=== PATIENT | female | born 1965 | race Two or more races ===

== ENCOUNTER 2018-02-19 16:53 | Inpatient (IN) | payer MEDICAID ==
[2018-02-19] MEDS ORDERED: Ampicillin/Sulbactam Na 1.5 GM in Sodium Chloride 0.9% 50 ML IV SCH (17:00)
[2018-02-19] MEDS ORDERED: Vancomycin 1,000 MG SDV ONE (17:49)
[2018-02-19] MEDS: Insulin Aspart 100 Units/ML 3 ML Pen SUBCUT SCH (18:17)
[2018-02-19] MEDS ORDERED: Ampicillin/Sulbactam Na 1.5 GM in Sodium Chloride 0.9% 100 ML IV SCH (19:47)
[2018-02-19] MEDS ORDERED: traMADol 50 MG Tab PO PRN (19:52)
[2018-02-19] MEDS: Ampicillin/Sulbactam Na 1.5 GM in Sodium Chloride 0.9% 100 ML IV SCH (20:09)
[2018-02-19] MEDS: Sodium Chloride 0.9% 10 ML Syringe FLUSH PRN (21:18)
[2018-02-20] MEDS: Ampicillin/Sulbactam Na 1.5 GM in Sodium Chloride 0.9% 100 ML IV SCH (02:10)
[2018-02-20] MEDS: Sodium Chloride 0.9% 10 ML Syringe FLUSH PRN ×5 (02:38→20:51)
[2018-02-20] MEDS: Insulin Aspart 100 Units/ML 3 ML Pen SUBCUT SCH ×6 (08:23→17:42)
[2018-02-20] MEDS: Ampicillin/Sulbactam Na 1.5 GM in Sodium Chloride 0.9% 50 ML IV SCH ×3 (08:27→20:11)
[2018-02-20] MEDS ORDERED: Lisinopril 2.5 MG Tab PO SCH (09:00)
[2018-02-20] MEDS: Aspirin 81 MG Tab.Chew PO SCH (09:34)
--- NOTE | 2018-02-20 15:36 | PCM.HP ---
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 She noted about 3 days ago she started to have an area on the fifth toe which has been a little bit open getting more red and swollen. Increasing pain over the next couple of days. The fifth toe became so painful she could barely walk on it. She presented to the clinic yesterday for further evaluation and was found to have a left fifth toe cellulitis and was recommended to be admitted because of her diabetes and her history of amputation. She was started on Unasyn and vancomycin on initial presentation. She had no systemic symptoms at home. No fevers, no chills, no sweats, no nausea, no vomiting, no diarrhea. ESR was 48 and CRP 13.1 and white count normal at 8.9 on admission. She had normal vital signs. Was admitted for further treatment. Past medical history: #1 type 2 diabetes mellitus currently on long-acting insulin Lantus 100 units daily at and NovoLog 08/03/15 with meals in addition to sliding scale. She has been taking this and her blood sugars have been in the low 100s with this regimen in spite of her infection. Most recent A1c in December was 8.1%. #2 hypertension #3 morbid obesity #4 history of Dupuytren's contracture Social History: Lives in [place] with her and daughter. She also has other family members have been staying with them. No one has been ill at home. 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 Family history significant for coronary artery disease and strokes in her immediate relatives. Left 5-Little toe Pain Score (Numeric/FACES): 2 - Related Data Allergies/Adverse Reactions: Allergies Allergy/AdvReac Type Severity Reaction Status Date / Time atorvastatin [From Lipitor] Allergy Other Verified 02/19/18 20:12 cephalexin [Cephalexin] Allergy Itching Verified 02/19/18 20:12 Home Medications: Home Meds Ibuprofen [Motrin] 800 mg PO TID PRN 07/03/16 [History] sitaGLIPtin Phosphate [Januvia] 100 mg PO DAILY 07/03/16 [History] Aspirin 81 mg PO DAILY 02/19/18 [History] Insulin Aspart [NovoLOG] 10 unit SUBCUT 0730 02/19/18 [History] Insulin Aspart [Novolog] 15 unit SQ 1200,1700 02/19/18 [History] Insulin Glarg,Human.Rec.Analog [Lantus] 100 unit SQ BEDTIME 02/19/18 [History] Lisinopril/Hydrochlorothiazide [Lisinopril-Hctz 10-12.5 mg Tab] 1 tab PO DAILY 02/20/18 [History] Past Medical History - Past Health History Medical/Surgical History: Denies Medical/Surgical History HEENT History: Reports: Impaired Vision, Other (See Below) Other HEENT History: Wears glasses. 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 Cardiovascular History: Reports: Arrhythmia, High Cholesterol, Hypertension [employer] History: Reports: Musculoskeletal History: Reports: Arthritis, Back Pain, Chronic, Fracture, Other (See Below) Other Musculoskeletal History: Back injury 2006. Sprained ankle, left. Neurological History: Reports: Neuropathy, Peripheral Endocrine/Metabolic History: Reports: Diabetes, Type II Dermatologic History: Reports: Other (See Below) Other Dermatologic History: Benign finding on top of left foot January 1018. - Infectious Disease History Infectious Disease History: Reports: Other (See Below) Other Infectious Disease History: Patient not familier with childhood illnesses. - Past Surgical History GI Surgical History: Reports: Colonoscopy, EGD Female Surgical History: Reports: Tubal Ligation Social & Family History - Family History Cardiac: Reports: Other (See Below) Other Cardiac Family History: Several siblings with heart problems. Endocrine/Metabolic: Reports: Other (See Below) Other Endocrine/Metabolic Family History: Several family members with diabetes. - Tobacco Use Smoking Status *Q: Former Smoker Years of Tobacco use: 25 Used Tobacco, but Quit: No Month/Year Tobacco Last Used: 2 YEARS AGO Second Hand Smoke Exposure: No - Caffeine Use Caffeine Use: Reports: Coffee, Soda, Tea - Alcohol Use Days Per Week of Alcohol Use: 1 Number of Drinks Per Day: 3 Total Drinks Per Week: 3 - Recreational Drug Use Recreational Drug Use: No Drug Use in Last 12 Months: Yes Recreational Drug Type: Reports: Marijuana/Hashish Recreational Drug Use Frequency: Daily Recreational Drug Last Use: MARCH 18 H&P Review of Systems - Review of Systems: Review Of Systems: ROS reveals no pertinent complaints other than HPI. Exam - Exam Exam: See Below - Vital Signs Vital Signs: Last Vital Signs Temp 36.3 C 02/20/18 08:00 Pulse 73 02/20/18 08:00 Resp 16 02/20/18 08:00 BP 139/72 02/20/18 08:00 Pulse Ox 95 02/20/18 08:00 Weight: 111.811 kg - Exam General: Alert, Oriented, Cooperative HEENT: PERRLA, Mucosa Moist & [place] Neck: Supple Lungs: Clear to Auscultation, Normal Respiratory Effort Cardiovascular: Regular Rate, Regular Rhythm, Normal S1, Normal S2 GI/Abdominal Exam: Normal Bowel Sounds, Soft, Non-Tender, No Distention Back Exam: Normal Inspection Extremities: No Pedal Edema (Pulses are intact bilaterally with dorsalis pedis and posterior tibialis. On the left foot, the fifth toe is erythematous and swollen. There is an area of callus which has a small scab on it on the lateral edge. Per patient, swelling and redness is much improved. The second toe is absent.) - Patient Data Lab Results Last 24 hrs: Laboratory Results - last 24 hr 02/19/18 02/19/18 02/19/18 Range/Units 17:25 17:25 17:25 WBC 10.0 (4.5-12.0) X10-3/uL RBC 4.96 (3.23-5.20) x10(6)uL Hgb 13.2 (11.5-15.5) g/dL Hct 39.4 (30.0-51.3) % MCV 79.4 L (80-96) fL MCH 26.6 L (27.7-33.6) pg MCHC 33.5 (32.2-35.4) g/dL RDW 13.3 (11.5-15.5) % Plt Count 349 (125-369) X10(3)uL MPV 7.2 L (7.4-10.4) fL Neut % (Auto) 68.9 (46-82) % Lymph % (Auto) 23.0 (13-37) % [place] % (Auto) 5.8 (4-12) % Eos % (Auto) 2 (1.0-5.0) % Baso % (Auto) 1 (0-2) % Neut # (Auto) 6.8 (1.6-8.3) # Lymph # (Auto) 2.3 (0.6-5.0) # [place] # (Auto) 0.6 (0.0-1.3) # Eos # (Auto) 0.2 (0.0-0.8) # Baso # (Auto) 0.1 (0.0-0.2) # Add Manual Diff Neutrophils % (Manual) (46-82) % Lymphocytes % (Manual) (13-37) % Monocytes % (Manual) (4-12) % Eosinophils % (Manual) (0-5) % ESR (0-20) mm/hr Sodium (135-145) mmol/L Potassium (3.5-5.3) mmol/L Chloride (100-110) mmol/L Carbon Dioxide (21-32) mmol/L BUN (7-18) mg/dL Creatinine (0.55-1.02) mg/dL Est Cr Clr Drug Dosing mL/min Estimated GFR (MDRD) (>60) BUN/Creatinine Ratio (9-20) Glucose (80-116) mg/dL POC Glucose (80-116) mg/dL Lactic Acid 1.2 (0.4-2.2) mmol/L Calcium (8.6-10.2) mg/dL Total Bilirubin (0.1-1.3) mg/dL AST (5-25) IU/L ALT (12-36) U/L Alkaline Phosphatase (56-112) IU/L C-Reactive Protein 13.1 H* (0.5-0.9) mg/dL Total Protein (6.0-8.0) g/dL Albumin (3.5-5.2) g/dL Globulin g/dL Albumin/Globulin Ratio 02/19/18 02/19/18 02/19/18 Range/Units 17:25 18:14 23:27 WBC (4.5-12.0) X10-3/uL RBC (3.23-5.20) x10(6)uL Hgb (11.5-15.5) g/dL Hct (30.0-51.3) % MCV (80-96) fL MCH (27.7-33.6) pg MCHC (32.2-35.4) g/dL RDW (11.5-15.5) % Plt Count (125-369) X10(3)uL MPV (7.4-10.4) fL Neut % (Auto) (46-82) % Lymph % (Auto) (13-37) % [place] % (Auto) (4-12) % Eos % (Auto) (1.0-5.0) % Baso % (Auto) (0-2) % Neut # (Auto) (1.6-8.3) # Lymph # (Auto) (0.6-5.0) # [place] # (Auto) (0.0-1.3) # Eos # (Auto) (0.0-0.8) # Baso # (Auto) (0.0-0.2) # Add Manual Diff Neutrophils % (Manual) (46-82) % Lymphocytes % (Manual) (13-37) % Monocytes % (Manual) (4-12) % Eosinophils % (Manual) (0-5) % ESR (0-20) mm/hr Sodium 135 (135-145) mmol/L Potassium 3.6 (3.5-5.3) mmol/L Chloride 99 L (100-110) mmol/L Carbon Dioxide 27 (21-32) mmol/L BUN 20 H (7-18) mg/dL Creatinine 0.9 (0.55-1.02) mg/dL Est Cr Clr Drug Dosing 67.67 mL/min Estimated GFR (MDRD) > 60 (>60) BUN/Creatinine Ratio 22.2 H (9-20) Glucose 223 H (80-116) mg/dL POC Glucose 228 H 145 H D (80-116) mg/dL Lactic Acid (0.4-2.2) mmol/L Calcium 8.9 (8.6-10.2) mg/dL Total Bilirubin (0.1-1.3) mg/dL AST (5-25) IU/L ALT (12-36) U/L Alkaline Phosphatase (56-112) IU/L C-Reactive Protein (0.5-0.9) mg/dL Total Protein (6.0-8.0) g/dL Albumin (3.5-5.2) g/dL Globulin g/dL Albumin/Globulin Ratio 02/20/18 02/20/18 02/20/18 Range/Units 06:17 06:40 06:40 WBC 8.9 (4.5-12.0) X10-3/uL RBC 4.81 (3.23-5.20) x10(6)uL Hgb 13.0 (11.5-15.5) g/dL Hct 38.2 (30.0-51.3) % MCV 79.4 L (80-96) fL MCH 27.0 L (27.7-33.6) pg MCHC 34.0 (32.2-35.4) g/dL RDW 13.0 (11.5-15.5) % Plt Count 333 (125-369) X10(3)uL MPV 7.0 L (7.4-10.4) fL Neut % (Auto) (46-82) % Lymph % (Auto) (13-37) % [place] % (Auto) (4-12) % Eos % (Auto) (1.0-5.0) % Baso % (Auto) (0-2) % Neut # (Auto) (1.6-8.3) # Lymph # (Auto) (0.6-5.0) # [place] # (Auto) (0.0-1.3) # Eos # (Auto) (0.0-0.8) # Baso # (Auto) (0.0-0.2) # Add Manual Diff Yes Neutrophils % (Manual) 70 (46-82) % Lymphocytes % (Manual) 21 (13-37) % Monocytes % (Manual) 4 (4-12) % Eosinophils % (Manual) 5 (0-5) % ESR 48 H (0-20) mm/hr Sodium 138 (135-145) mmol/L Potassium 4.1 (3.5-5.3) mmol/L Chloride 103 (100-110) mmol/L Carbon Dioxide 27 (21-32) mmol/L BUN 15 (7-18) mg/dL Creatinine 0.7 (0.55-1.02) mg/dL Est Cr Clr Drug Dosing 87.01 mL/min Estimated GFR (MDRD) > 60 (>60) BUN/Creatinine Ratio 21.4 H (9-20) Glucose 171 H (80-116) mg/dL POC Glucose 171 H (80-116) mg/dL Lactic Acid (0.4-2.2) mmol/L Calcium 8.7 (8.6-10.2) mg/dL Total Bilirubin 0.6 (0.1-1.3) mg/dL AST 12 (5-25) IU/L ALT < 6 L (12-36) U/L Alkaline Phosphatase 66 (56-112) IU/L C-Reactive Protein (0.5-0.9) mg/dL Total Protein 7.8 (6.0-8.0) g/dL Albumin 3.3 L (3.5-5.2) g/dL Globulin 4.5 g/dL Albumin/Globulin Ratio 0.7 /02/04 Range/Units 11:23 WBC (4.5-12.0) X10-3/uL RBC (3.23-5.20) x10(6)uL Hgb (11.5-15.5) g/dL Hct (30.0-51.3) % MCV (80-96) fL MCH (27.7-33.6) pg MCHC (32.2-35.4) g/dL RDW (11.5-15.5) % Plt Count (125-369) X10(3)uL MPV (7.4-10.4) fL Neut % (Auto) (46-82) % Lymph % (Auto) (13-37) % [place] % (Auto) (4-12) % Eos % (Auto) (1.0-5.0) % Baso % (Auto) (0-2) % Neut # (Auto) (1.6-8.3) # Lymph # (Auto) (0.6-5.0) # [place] # (Auto) (0.0-1.3) # Eos # (Auto) (0.0-0.8) # Baso # (Auto) (0.0-0.2) # Add Manual Diff Neutrophils % (Manual) (46-82) % Lymphocytes % (Manual) (13-37) % Monocytes % (Manual) (4-12) % Eosinophils % (Manual) (0-5) % ESR (0-20) mm/hr Sodium (135-145) mmol/L Potassium (3.5-5.3) mmol/L Chloride (100-110) mmol/L Carbon Dioxide (21-32) mmol/L BUN (7-18) mg/dL Creatinine (0.55-1.02) mg/dL Est Cr Clr Drug Dosing mL/min Estimated GFR (MDRD) (>60) BUN/Creatinine Ratio (9-20) Glucose (80-116) mg/dL POC Glucose 199 H (80-116) mg/dL Lactic Acid (0.4-2.2) mmol/L Calcium (8.6-10.2) mg/dL Total Bilirubin (0.1-1.3) mg/dL AST (5-25) IU/L ALT (12-36) U/L Alkaline Phosphatase (56-112) IU/L C-Reactive Protein (0.5-0.9) mg/dL Total Protein (6.0-8.0) g/dL Albumin (3.5-5.2) g/dL Globulin g/dL Albumin/Globulin Ratio Result Diagrams: 02/20/18 06:40 02/20/18 06:40 - Problem List (1) Cellulitis of fifth toe of left foot SNOMED Code(s): 97507082 ICD Code: L03.032 - CELLULITIS OF LEFT TOE Status: Acute Current Visit: Yes Problem Details: Currently on Unasyn and vancomycin. No purulence. Patient has not recently been treated with antibiotics, has no known history of MRSA. has responded very well to initial antibiotic therapy. We'll continue this current course with unasyn, stop vancomycin and plan to de-escalate tomorrow to oral antibiotics for discharge. (2) Diabetes mellitus SNOMED Code(s): 17277130 ICD Code: E11.9 - TYPE 2 DIABETES MELLITUS WITHOUT COMPLICATIONS Status: Acute Current Visit: No Problem Details: Continue home insulin regimen. (3) DVT prophylaxis SNOMED Code(s): 014052265, 854908463 ICD Code: VPB6033 - Status: Acute Current Visit: Yes Problem Details: Lovenox, SCDs. Problem List Initiated/Reviewed/Updated: Yes Orders Last 24hrs: Active Orders 24 hr Category Date Time Status Patient Status [ADT] Routine ADT 02/19/18 16:58 Active Accu Check [Blood Glucose Check, Bedside] [RC] Care 02/19/18 23:56 Active QIDACANDBED Oxygen Therapy [RC] PRN Care 02/19/18 16:58 Active Up With Assistance [RC] ASDIRECTED Care 02/19/18 16:58 Active VTE/DVT Education [RC] Per Unit Routine Care 02/19/18 16:58 Active Vital Signs [RC] 00,08,16 Care 02/19/18 16:58 Active Consistent Carbohydrate Diet [DIET] Diet 02/19/18 Dinner Active CULTURE BLOOD [BC] Urgent Lab 02/19/18 17:25 Received CULTURE BLOOD [BC] Urgent Lab 02/19/18 17:30 Received VANCOMYCIN TROUGH [CHEM] Timed Lab 02/21/18 13:30 Ordered Ampicillin/Sulbactam Na [Unasyn] 1.5 gm Med 02/20/18 08:00 Active Sodium Chloride 0.9% [Normal Saline] 50 ml IV Q6H Aspirin Med 02/20/18 09:00 Active 81 mg PO DAILY Insulin Aspart [NovoLOG] Med 02/20/18 09:00 Active 10 unit SUBCUT 0730 Insulin Aspart [NovoLOG] Med 02/20/18 12:00 Active 15 unit SUBCUT 1200,1800 Insulin Aspart [NovoLOG] Med 02/20/18 12:00 Active See Protocol SUBCUT TIDMEALS Insulin Detemir [Levemir] Med 02/20/18 21:00 Active 100 unit SUBCUT BEDTIME Lisinopril [Prinivil] Med 02/20/18 09:00 Hold 2.5 mg PO DAILY SitaGLIPtin [Januvia] Med 02/20/18 09:00 Active 100 mg PO DAILY Sodium Chloride 0.9% [Saline Flush] Med 02/19/18 16:58 Active 10 ml FLUSH ASDIRECTED PRN Vancomycin 1,000 mg Med 02/20/18 14:00 Active Vancomycin 500 mg Sodium Chloride 0.9% [Normal Saline] 500 ml IV Q12H Vancomycin Pharmacy to Dose [Pharmacy to Dose - Med 02/20/18 10:14 Pending Vancomycin] See Dose Instructions .XX ONETIME ONE traMADol [Ultram] Med 02/19/18 19:52 Active 50 mg PO Q6H PRN Blood Culture x2 Reflex Set [OM.PC] Urgent Oth 02/19/18 16:58 Ordered Saline Lock Insert [OM.PC] Routine Oth 02/19/18 16:58 Ordered Resuscitation Status Routine Resus Stat 02/19/18 16:58 Ordered Medication Orders Aspirin (Aspirin) 81 mg PO DAILY [facility] Last Admin: 02/20/18 09:34 Dose: 81 mg Ampicillin Sodium/Sulbactam (Sodium 1.5 gm/ Sodium Chloride) 50 mls @ 100 mls/ hr IV Q6H [facility] Last Admin: 02/20/18 13:04 Dose: 100 mls/hr Admin: 02/20/18 08:27 Dose: 100 mls/hr Vancomycin HCl 1,000 mg/Vancomycin HCl 500 mg/ Sodium Chloride 500 mls @ 333 mls/hr IV Q12H [facility] Last Admin: 02/20/18 13:52 Dose: 333 mls/hr Insulin Aspart (Novolog) 10 unit SUBCUT 0730 [facility] Last Admin: 02/20/18 09:31 Dose: 10 units Insulin Aspart (Novolog) 15 unit SUBCUT 1200,1800 [facility] Last Admin: 02/20/18 11:26 Dose: 15 units Insulin Aspart (Novolog) 0 unit SUBCUT TIDMEALS [facility]; Protocol Last Admin: 02/20/18 11:27 Dose: 15 units Insulin Detemir (Levemir) 100 unit SUBCUT BEDTIME [facility] Lisinopril (Prinivil) 2.5 mg PO DAILY [facility] Sitagliptin Phosphate (Januvia) 100 mg PO DAILY [facility] Last Admin: 02/20/18 09:34 Dose: 100 mg Sodium Chloride (Saline Flush) 10 ml FLUSH ASDIRECTED PRN PRN Reason: Keep Vein Open Last Admin: 02/20/18 09:12 Dose: 10 ml Admin: 02/20/18 06:55 Dose: 10 ml Admin: 02/20/18 02:38 Dose: 10 ml Admin: 02/19/18 21:18 Dose: 10 ml Tramadol HCl (Ultram) 50 mg PO Q6H PRN PRN Reason: Pain Last Admin: 02/19/18 20:11 Dose: 50 mg Vancomycin HCl (Pharmacy To Dose - Vancomycin) 0 dose .XX ONETIME ONE Stop: 02/20/18 10:15 Assessment/Plan Comment:: CODE STATUS discussed with the patient and her family. Patient is a full code for now. However she is not sure that she would want resuscitation and is going to think about this and discuss it more with her family.
[2018-02-20] MEDS ORDERED: Docusate Sodium 100 MG Cap PO PRN (15:43)
[2018-02-20] MEDS ORDERED: Acetaminophen 325 MG Tab PO PRN (15:43)
[2018-02-20] MEDS ORDERED: Enoxaparin 40 MG/0.4 ML Syringe SUBCUT SCH (15:45)
[2018-02-20] MEDS ORDERED: Insulin Detemir 100 Units/ML 3 ML Pen SUBCUT SCH (21:00)
[2018-02-21] MEDS: Ampicillin/Sulbactam Na 1.5 GM in Sodium Chloride 0.9% 50 ML IV SCH ×2 (02:30→07:47)
[2018-02-21] MEDS: Sodium Chloride 0.9% 10 ML Syringe FLUSH PRN (02:32)
[2018-02-21] MEDS: Insulin Aspart 100 Units/ML 3 ML Pen SUBCUT SCH ×4 (07:39→11:34)
[2018-02-21 08:46] VITALS: BP 131/70
[2018-02-21] MEDS: Aspirin 81 MG Tab.Chew PO SCH (08:46)
[2018-02-21] MEDS ORDERED: Hydrochlorothiazide/Lisinopril 12.5-10 MG Tab PO SCH (09:00)
--- NOTE | 2018-02-21 09:34 | PCM.DCSUM1 ---
Discharge Summary - Hospital Course Free Text/Narrative:: Date of admission: 02/19/18 Date of discharge: 02/21/2018 Admission diagnosis: Left foot fifth toe cellulitis. Discharge diagnosis: Same Consults: None Procedures: None; Blood cultures final report still pending at time of discharge. 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 She noted about 3 days prior to admission she started to have an area on the fifth toe which has been a little bit open and callused getting more red and swollen. Increasing pain over the next couple of days. The fifth toe became so painful she could barely walk on it. She presented to the clinic the day of admission for further evaluation and was found to have a left fifth toe cellulitis and was recommended to be admitted because of her diabetes and her history of amputation. She was started on Unasyn and vancomycin on initial presentation. She had no systemic symptoms at home. No fevers, no chills, no sweats, no nausea , no vomiting, no diarrhea. ESR was 48 and CRP 13.1 and white count normal at 8.9 on admission. She had normal vital signs. Was admitted for further treatment. Hospital Course: Patient did well. Vanco was stopped and unasyn continued. She continued to improve. CRP went down. Pain was gone. Was able to be discharged to complete her therapy as an outpatient. Stressed getting in with podiatry for treatment of callus and getting diabetic shoes. See problem list below for details per problem. - Discharge Data Discharge Date: 02/21/18 Discharge Disposition: Home, Self-Care 01 Condition: Good - Discharge Diagnosis/Problem(s) (1) Cellulitis of fifth toe of left foot SNOMED Code(s): 61195817 ICD Code: L03.032 - CELLULITIS OF LEFT TOE Status: Acute Current Visit: Yes Problem Details: Tx with unasyn. Give first dose of augmentin today at noon then discharge home on BID therapy for total of 10 days. See podiatry within a week for debridement/tx. Needs diabetic shoes. (2) Diabetes mellitus SNOMED Code(s): 10114972 ICD Code: E11.9 - TYPE 2 DIABETES MELLITUS WITHOUT COMPLICATIONS Status: Acute Current Visit: No Problem Details: Continue home insulin regimen. See PCP within a week to adjust insulin for goal sugar less than 200 to promote wound healing and reduce risk of infection. Needs DM shoes. (3) DVT prophylaxis SNOMED Code(s): 569231107, 284236585 ICD Code: [id number] - Status: Acute Current Visit: Yes Problem Details: Lovenox, SCDs. - Patient Instructions Diet: Heart Healthy Diet, Diabetic Diet Other/Special Instructions: You were admitted to the hospital with a fifth toe infection. You have a callus that should be treated by podiatry. Please see podiatry within the week. You should follow-up with your primary care provider also within the week to talk about reducing your blood sugars to less than 200 to help with healing and decrease risk of infection. You should take the antibiotic Augmentin twice a day until February 28. You should take this with yogurt or probiotics to help prevent diarrhea. You should get diabetic shoes to protect your feet from more calluses or ulcers. You had blood cultures done in the hospital which were negative, but final report was not done yet at the time of your discharge. We will contact you if these change. - Discharge Plan Prescriptions/Med Rec: Amoxicillin/Potassium Clav [Augmentin 875-125 Tablet] 1 each PO BID #15 tablet Home Medications: Home Meds sitaGLIPtin Phosphate [Januvia] 100 mg PO DAILY 07/03/16 [History] Aspirin 81 mg PO DAILY 02/19/18 [History] Insulin Aspart [NovoLOG] 10 unit SUBCUT 0730 02/19/18 [History] Insulin Aspart [Novolog Flexpen] 15 unit SQ 1200,1700 02/19/18 [History] Insulin Glarg,Human.Rec.Analog [Lantus] 100 unit SQ BEDTIME 02/19/18 [History] Lisinopril/Hydrochlorothiazide [Lisinopril-Hctz 10-12.5 mg Tab] 1 tab PO DAILY 02/20/18 [History] Amoxicillin/Potassium Clav [Augmentin 875-125 Tablet] 1 each PO BID #15 tablet 02/21/18 [Rx] - General Info Date of Service: 02/21/18 Subjective Update: On day of discharge, toe pain was gone. Still slightly reddened and swollen. No fevers, no chills, no sweats, no CP/SOB/N/V/D. Ready for discharge. - Patient Data Vitals - Most Recent: Last Vital Signs Temp 36.3 C 02/21/18 04:00 Pulse 69 02/21/18 04:00 Resp 16 02/21/18 04:00 BP 131/70 02/21/18 08:46 Pulse Ox 96 02/21/18 04:00 Weight - Most Recent: 111.811 kg I&O - Last 24 hours: Intake & Output 02/20/18 02/21/18 02/21/18 22:59 06:59 14:59 Intake Total 550 250 Balance 550 250 Lab Results - Last 24 hrs: Laboratory Results - last 24 hr 02/20/18 02/20/18 02/20/18 Range/Units 06:40 11:23 17:39 WBC (4.5-12.0) X10-3/uL RBC (3.23-5.20) x10(6)uL Hgb (11.5-15.5) g/dL Hct (30.0-51.3) % MCV (80-96) fL MCH (27.7-33.6) pg MCHC (32.2-35.4) g/dL RDW (11.5-15.5) % Plt Count (125-369) X10(3)uL MPV (7.4-10.4) fL Neut % (Auto) (46-82) % Lymph % (Auto) (13-37) % Crockett % (Auto) (4-12) % Eos % (Auto) (1.0-5.0) % Baso % (Auto) (0-2) % Neut # (Auto) (1.6-8.3) # Lymph # (Auto) (0.6-5.0) # Crockett # (Auto) (0.0-1.3) # Eos # (Auto) (0.0-0.8) # Baso # (Auto) (0.0-0.2) # Sodium (135-145) mmol/L Potassium (3.5-5.3) mmol/L Chloride (100-110) mmol/L Carbon Dioxide (21-32) mmol/L BUN 15 (7-18) mg/dL Creatinine (0.55-1.02) mg/dL Est Cr Clr Drug Dosing mL/min Estimated GFR (MDRD) (>60) BUN/Creatinine Ratio 21.4 H (9-20) Glucose (80-116) mg/dL POC Glucose 199 H 183 H (80-116) mg/dL Calcium (8.6-10.2) mg/dL C-Reactive Protein (0.5-0.9) mg/dL 18 02/21/18 02/21/18 Range/Units 21:32 05:40 05:40 WBC 8.5 (4.5-12.0) X10-3/uL RBC 4.75 (3.23-5.20) x10(6)uL Hgb 12.4 (11.5-15.5) g/dL Hct 37.9 (30.0-51.3) % MCV 79.7 L (80-96) fL MCH 26.0 L (27.7-33.6) pg MCHC 32.7 (32.2-35.4) g/dL RDW 13.0 (11.5-15.5) % Plt Count 357 (125-369) X10(3)uL MPV 7.1 L (7.4-10.4) fL Neut % (Auto) 55.7 (46-82) % Lymph % (Auto) 30.8 (13-37) % Crockett % (Auto) 7.5 (4-12) % Eos % (Auto) 5 (1.0-5.0) % Baso % (Auto) 1 (0-2) % Neut # (Auto) 4.7 (1.6-8.3) # Lymph # (Auto) 2.6 (0.6-5.0) # Crockett # (Auto) 0.6 (0.0-1.3) # Eos # (Auto) 0.5 (0.0-0.8) # Baso # (Auto) 0.1 (0.0-0.2) # Sodium 138 (135-145) mmol/L Potassium 4.4 (3.5-5.3) mmol/L Chloride 103 (100-110) mmol/L Carbon Dioxide 27 (21-32) mmol/L BUN 15 (7-18) mg/dL Creatinine 0.7 (0.55-1.02) mg/dL Est Cr Clr Drug Dosing 87.01 mL/min Estimated GFR (MDRD) > 60 (>60) BUN/Creatinine Ratio 21.4 H (9-20) Glucose 180 H (80-116) mg/dL POC Glucose 251 H (80-116) mg/dL Calcium 8.9 (8.6-10.2) mg/dL C-Reactive Protein (0.5-0.9) mg/dL 02/21/18 Range/Units 05:40 WBC (4.5-12.0) X10-3/uL RBC (3.23-5.20) x10(6)uL Hgb (11.5-15.5) g/dL Hct (30.0-51.3) % MCV (80-96) fL MCH (27.7-33.6) pg MCHC (32.2-35.4) g/dL RDW (11.5-15.5) % Plt Count (125-369) X10(3)uL MPV (7.4-10.4) fL Neut % (Auto) (46-82) % Lymph % (Auto) (13-37) % Crockett % (Auto) (4-12) % Eos % (Auto) (1.0-5.0) % Baso % (Auto) (0-2) % Neut # (Auto) (1.6-8.3) # Lymph # (Auto) (0.6-5.0) # Crockett # (Auto) (0.0-1.3) # Eos # (Auto) (0.0-0.8) # Baso # (Auto) (0.0-0.2) # Sodium (135-145) mmol/L Potassium (3.5-5.3) mmol/L Chloride (100-110) mmol/L Carbon Dioxide (21-32) mmol/L BUN (7-18) mg/dL Creatinine (0.55-1.02) mg/dL Est Cr Clr Drug Dosing mL/min Estimated GFR (MDRD) (>60) BUN/Creatinine Ratio (9-20) Glucose (80-116) mg/dL POC Glucose (80-116) mg/dL Calcium (8.6-10.2) mg/dL C-Reactive Protein 9.6 H* (0.5-0.9) mg/dL DAJUAN Results - Last 24 hrs: Microbiology 02/19/18 17:30 Aerobic Blood Culture - Preliminary Blood - Venous NO GROWTH AFTER 1 DAY Anaerobic Blood Culture - Preliminary NO GROWTH AFTER 1 DAY 02/19/18 17:25 Aerobic Blood Culture - Preliminary Blood - Venous - Lab Draw NO GROWTH AFTER 1 DAY Anaerobic Blood Culture - Preliminary NO GROWTH AFTER 1 DAY Med Orders - Current: Current Medications Acetaminophen (Tylenol) 650 mg PO Q4H PRN PRN Reason: Pain (Mild 1-3)/fever Amoxicillin/Clavulanate Potassium (Augmentin 875 Mg/125 Mg) 1 tab PO ONETIME ONE Stop: 02/21/18 12:01 Aspirin (Aspirin) 81 mg PO DAILY [facility] Last Admin: 02/21/18 08:46 Dose: 81 mg Docusate Sodium (Colace) 100 mg PO BID PRN PRN Reason: Constipation Enoxaparin Sodium (Lovenox) 40 mg SUBCUT Q24H [facility] Last Admin: 02/20/18 16:24 Dose: 40 mg Lisinopril/HCTZ (Lisinopril/Hctz 10-12.5 Mg) 1 tab PO DAILY [facility] Last Admin: 02/21/18 08:46 Dose: 1 tab Insulin Aspart (Novolog) 10 unit SUBCUT 0730 [facility] Last Admin: 02/21/18 07:39 Dose: 10 units Insulin Aspart (Novolog) 15 unit SUBCUT 1200,1800 [facility] Last Admin: 02/20/18 17:42 Dose: 15 units Insulin Aspart (Novolog) 0 unit SUBCUT TIDMEALS [facility]; Protocol Last Admin: 02/21/18 07:39 Dose: 2 units Insulin Detemir (Levemir) 100 unit SUBCUT BEDTIME [facility] Last Admin: 02/20/18 21:17 Dose: 100 units Sitagliptin Phosphate (Januvia) 100 mg PO DAILY [facility] Last Admin: 02/21/18 08:46 Dose: 100 mg Sodium Chloride (Saline Flush) 10 ml FLUSH ASDIRECTED PRN PRN Reason: Keep Vein Open Last Admin: 02/21/18 02:32 Dose: 10 ml Tramadol HCl (Ultram) 50 mg PO Q6H PRN PRN Reason: Pain Last Admin: 02/19/18 20:11 Dose: 50 mg Discontinued Medications Ampicillin Sodium/Sulbactam (Sodium 1.5 gm/ Sodium Chloride) 50 mls @ 100 mls/ hr IV Q6H [facility] Last Admin: 02/20/18 02:16 Dose: Not Given Vancomycin HCl 1,000 mg/ (Sodium Chloride) 250 mls @ 167 mls/hr IV Q12H [facility] Last Admin: 02/20/18 05:29 Dose: 167 mls/hr Ampicillin Sodium/Sulbactam (Sodium 1.5 gm/ Sodium Chloride) 100 mls @ 200 mls/ hr IV Q6H [facility] Last Admin: 02/20/18 02:18 Dose: Not Given Ampicillin Sodium/Sulbactam (Sodium 1.5 gm/ Sodium Chloride) 100 mls @ 200 mls/ hr IV Q6H [facility] Last Admin: 02/20/18 02:10 Dose: 200 mls/hr Ampicillin Sodium/Sulbactam (Sodium 1.5 gm/ Sodium Chloride) 50 mls @ 100 mls/ hr IV Q6H [facility] Last Admin: 02/21/18 07:47 Dose: 100 mls/hr Vancomycin HCl 1,000 mg/Vancomycin HCl 500 mg/ Sodium Chloride 500 mls @ 333 mls/hr IV Q12H [facility] Last Admin: 02/20/18 13:52 Dose: 333 mls/hr Insulin Aspart (Novolog) 0 unit SUBCUT TIDMEALS [facility]; Protocol Last Admin: 02/20/18 08:23 Dose: 3 units Vancomycin HCl (Vancomycin) Confirm Administered Dose 1,000 mg .ROUTE .STK-MED ONE Stop: 02/19/18 17:50 Last Admin: 02/19/18 19:43 Dose: Not Given - Exam General: Reports: Alert, Oriented, Cooperative, No Acute Distress HEENT: Reports: Pupils Equal, Pupils Reactive Neck: Reports: Supple Lungs: Reports: Clear to Auscultation, Normal Respiratory Effort Cardiovascular: Reports: Regular Rate, Regular Rhythm, No Murmurs GI/Abdominal Exam: Normal Bowel Sounds, Soft, Non-Tender, No Distention Back Exam: Reports: Normal Inspection Extremities: No Pedal Edema, Other (5th toe left foot much improved. Still mildly swollen and erythematous on the medial side.)
[2018-02-21] MEDS ORDERED: Amoxicillin/Clavulanate K 875-125 MG Tab PO ONE (12:00)
== END 2018-02-21 12:28 | disposition home or self-care (01) | DRG 603 ==
LOC: FB.MS 16:53
PROVIDERS: ADMIT Family Medicine; ATTEND Family Medicine
DX: L03.032 Cellulitis of left toe (principal); E11.42 Type 2 diabetes mellitus with diabetic polyneuropathy; Z86.31 Personal history of diabetic foot ulcer; Z79.4 Long term (current) use of insulin; I10 Essential (primary) hypertension; E66.01 Morbid (severe) obesity due to excess calories; Z68.39 Body mass index [BMI] 39.0-39.9, adult; M54.9 Dorsalgia, unspecified; G89.29 Other chronic pain; Z87.891 Personal history of nicotine dependence; H54.7 Unspecified visual loss; Z88.1 Allergy status to other antibiotic agents; Z88.8 Allergy status to other drugs, medicaments and biological substances; Z79.82 Long term (current) use of aspirin; Z89.422 Acquired absence of other left toe(s)
CPT/HCPCS: 36415; 80048; 80053; 82962; 83605; 85025; 85651; 86140; 87040; A9270-GY; J0287; J1650; J3370; J7030; J7040; J7050

== ENCOUNTER 2018-06-07 11:36 | Emergency (ER) | payer MEDICAID, OTHER ==
[2018-06-07] MEDS ORDERED: Ketorolac 60 MG/2 ML SDV IM ONE (12:08)
--- NOTE | 2018-06-07 12:14 | EDM.PDOC ---
ED HPI GENERAL MEDICAL PROBLEM - General Stated Complaint: REDNESS ON RIGHT LEG Time Seen by Provider: 06/07/18 11:36 Source of Information: Reports: Patient History Limitations: Reports: No Limitations - History of Present Illness INITIAL COMMENTS - FREE TEXT/NARRATIVE: 53 y.o.w.f S/P CABG in April 2018, the surgical wound at her right knee opened up and got infected. Pt was seen at the clinic friday. Abx were prescribed, pt took her first dose Doxycycline Friday (yesterday). Pt is scheduled to see her PMD this Friday. To stretch her leg is painful. Pt noticed a lump at her right knee medial aspect. Pt c/o headache as well. Pt received a toradol shot yesterday which helped her pain. She is on Oxycodon as well, no C/P, no N/V/D or any other acute medical issues. BP 143/53 Pulse 82 RR 18 Temp 36.8 Pulse ox 99% on RA Onset Date: 06/04/18 Onset Time: 09:00 Duration: Day(s):, Getting Worse, Intermittent Location: Reports: Lower Extremity, Right Quality: Reports: Ache, Burning, Dull Severity: Mild Improves with: Reports: Rest Worsens with: Reports: Movement Context: Reports: Other (S/P CABG in April, wound at her right knee opend up and got infected. Pt was seen at the [facility] [address] friday. 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: Other (see below) (oxycodon) Right Leg Pain Score (Numeric/FACES): 6 headache Pain Score (Numeric/FACES): 6 - Related Data Allergies Allergy/AdvReac Type Severity Reaction Status Date / Time atorvastatin [From Lipitor] Allergy Other Verified 06/07/18 11:47 cephalexin [Cephalexin] Allergy Itching Verified 06/07/18 11:47 Home Meds: Home Meds sitaGLIPtin Phosphate [Januvia] 100 mg PO DAILY 07/03/16 [History] Insulin Aspart [NovoLOG] 10 unit SUBCUT 0730 02/19/18 [History] Insulin Aspart [Novolog Flexpen] 15 unit SQ 1200,1700 02/19/18 [History] Insulin Glarg,Human.Rec.Analog [Lantus] 30 unit SQ BEDTIME 02/19/18 [History] Past Medical History - Past Health History Medical/Surgical History: Denies Medical/Surgical History HEENT History: Reports: Impaired Vision, Other (See Below) Other HEENT History: Wears glasses. 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 Sprained ankle, left. Neurological History: Reports: Neuropathy, Peripheral Endocrine/Metabolic History: Reports: Diabetes, Type II Dermatologic History: Reports: Other (See Below) Other Dermatologic History: Benign finding on top of left foot January 1018. - Infectious Disease History Infectious Disease History: Reports: Other (See Below) Other Infectious Disease History: Patient not familier with childhood illnesses. - Past Surgical History GI Surgical History: Reports: Colonoscopy, EGD Female Surgical History: Reports: Tubal Ligation Social & Family History - Family History Cardiac: Reports: Other (See Below) Other Cardiac Family History: Several siblings with heart problems. Endocrine/Metabolic: Reports: Other (See Below) Other Endocrine/Metabolic Family History: Several family members with diabetes. - Caffeine Use Caffeine Use: Reports: Coffee, Soda, Tea ED ROS GENERAL - Review of Systems Review Of Systems: See Below Constitutional: Reports: No Symptoms HEENT: Reports: No Symptoms Respiratory: Reports: No Symptoms Cardiovascular: Reports: No Symptoms Endocrine: Reports: No Symptoms GI/Abdominal: Reports: No Symptoms : Reports: No Symptoms Musculoskeletal: Reports: No Symptoms Skin: Reports: Wound (right knee med aspect) Neurological: Reports: No Symptoms Psychiatric: Reports: No Symptoms Hematologic/Lymphatic: Reports: No Symptoms Immunologic: Reports: No Symptoms ED EXAM, SKIN/RASH Exam: See Below Exam Limited By: No Limitations General Appearance: Alert, WD/WN, Mild Distress Eye Exam: Bilateral Eye: Normal Inspection Ears: Normal External Exam, Normal Canal, Hearing Grossly Normal, Normal TMs Nose: Normal Inspection, Normal Mucosa, No Blood Throat/Mouth: Normal Inspection, Normal Lips, Normal Gums, Normal Oropharynx, Normal Voice, No Airway Compromise Head: Atraumatic, Normocephalic Neck: Normal Inspection, Supple, Non-Tender, Full Range of Motion Respiratory/Chest: No Respiratory Distress, Lungs Clear, Normal Breath Sounds, No Accessory Muscle Use, Chest Non-Tender Cardiovascular: Normal Peripheral Pulses, Regular Rate, Rhythm, No Edema, No Gallop, No JVD, No Murmur, No Rub Peripheral Pulses: 1+: Brachial (R) GI/Abdominal: Normal Bowel Sounds, Soft, Non-Tender, No Organomegaly, No Distention, No Abnormal Bruit, No Mass, Pelvis Stable (Female) Exam: Deferred Rectal (Female) Exam: Deferred Back Exam: Normal Inspection, Full Range of Motion Extremities: Normal Capillary Refill, Limited Range of Motion (due to pain) Neurological: Alert, Oriented, CN II-XII Intact, Normal Cognition, Abnormal Gait (due to skin pain right knee) Skin: Other (wound right knee med aspect, 2 inches, not fluctuating.) Location, Skin: Lower Extremity, Right Characteristics: Macular Associated features: Swelling, Induration Lymphatic: No Adenopathy Course - Vital Signs Text/Narrative:: 53 y.o.w.f S/P CABG in April 2018, the surgical wound at her right knee opened up and got infected. Pt was seen at the clinic friday. Abx were prescribed, pt took her first dose Doxycycline Friday (yesterday). Pt is scheduled to see her PMD this Friday. To stretch her leg is painful. Pt noticed a lump at her right knee medial aspect. Pt c/o headache as well. Pt received a toradol shot yesterday which helped her pain. She is on Oxycodon as well, no C/P, no N/V/D or any other acute medical issues. BP 143/53 Pulse 82 RR 18 Temp 36.8 Pulse ox 99% on RA PE: 53 y.o.w.f with H/A and a nonfluctuating lump 3 cam right knee medial aspect. Impression: Developing skin abscess right knee, medial aspect, no pus draining Tx: Pt is on Doxycycline, takes hydrocodon for pain. Toradol was given in the ed on Friday and here in the ED today.Wound care, Gram stain and cultures are pending Reexam: Improved Plan: D/C with instructions Last Recorded V/S: Last Vital Signs Temp 36.2 C 06/07/18 11:40 Pulse 82 06/07/18 11:40 Resp 18 06/07/18 11:40 BP 142/53 H 06/07/18 11:40 Pulse Ox 99 06/07/18 11:40 - Orders/Labs/Meds Orders: Active Orders 24 hr Category Date Time Status CULTURE ROUTINE + SMEAR [RM] Routine Lab 06/07/18 12:10 Received Meds: Medications Discontinued Medications Generic Name Dose Route Start Last Admin Trade Name Misha PRN Reason Stop Dose Admin Ketorolac Tromethamine 60 mg 06/07/18 12:08 06/07/18 12:23 Toradol IM 06/07/18 12:09 60 mg ONETIME ONE Administration Departure - Departure Time of Disposition: 12:14 Disposition: Home, Self-Care 01 Condition: Good Clinical Impression: Leg wound, left Qualifiers: Encounter type: subsequent encounter Qualified Code(s): S81.802D - Unspecified open wound, left lower leg, subsequent encounter - Discharge Information Referrals: Jarrod Moreno MD [Primary Care Provider] - Forms: ED Department Discharge Additional Instructions: Please cont your Abx, please cont your pain meds, please f/u with your PMD in next 1-3 days, come back if your symptoms get worse acutely - My Orders Last 24 Hours: My Active Orders 06/07/18 12:10 CULTURE ROUTINE + SMEAR [RM] Routine - Assessment/Plan Last 24 Hours: My Active Orders 06/07/18 12:10 CULTURE ROUTINE + SMEAR [RM] Routine
[2018-06-07 14:44] VITALS: BP 142/53
== END 2018-06-07 12:30 | disposition home or self-care (01) ==
LOC: FB.ED 11:36
DX: S81.801D Unspecified open wound, right lower leg, subsequent encounter (principal); L02.415 Cutaneous abscess of right lower limb; I10 Essential (primary) hypertension; E11.9 Type 2 diabetes mellitus without complications; Z95.1 Presence of aortocoronary bypass graft; Z79.4 Long term (current) use of insulin; Z88.1 Allergy status to other antibiotic agents
CPT/HCPCS: 87070; 87077; 87186; 87205; 96372; 99284; J1885

== ENCOUNTER 2022-01-14 14:16 | Emergency (ER) | payer MEDICAID ==
[2022-01-14] MEDS: Aspirin 81 MG Tab.Chew PO ONE (15:40)
[2022-01-14] MEDS: Sodium Chloride 0.9% 1,000 ML IV ONE (15:45)
[2022-01-14] MEDS ORDERED: Heparin Sodium/0.45% NaCl 25,000 UNITS/500 ML BAG IV SCH (16:00)
[2022-01-14] MEDS: Metoprolol Tartrate 5 MG/5 ML SDV IVPUSH ONE (16:12)
[2022-01-14] MEDS: Heparin Sodium 5,000 Units/ML Vial IVPUSH ONE (16:13)
[2022-01-14] MEDS: Heparin Sodium/0.45% NaCl 25,000 UNITS/500 ML BAG IV SCH (16:25)
[2022-01-14 17:34] VITALS: BP 165/74; PULSE 80
== END 2022-01-14 17:05 | disposition other institution (70) ==
LOC: FB.ED 14:16
DX: I21.4 Non-ST elevation (NSTEMI) myocardial infarction (principal); F41.0 Panic disorder [episodic paroxysmal anxiety]; E86.0 Dehydration; R94.4 Abnormal results of kidney function studies; E11.9 Type 2 diabetes mellitus without complications; I10 Essential (primary) hypertension; R79.89 Other specified abnormal findings of blood chemistry; Z88.1 Allergy status to other antibiotic agents; Z88.8 Allergy status to other drugs, medicaments and biological substances; Z79.4 Long term (current) use of insulin
CPT/HCPCS: 36415; 71045; 80053; 81001; 84484; 85025; 85610; 85730; 86140; 93005; 96365; 96375; 96376; 99283; 99285-25; A9270-GY; J1644; J3490; J7030